=== PATIENT | female | born 1945 | race Caucasian/White ===

== ENCOUNTER 2017-04-02 12:09 | Emergency (ER) | payer MEDICARE, OTHER ==
[~2017-04-02] VITALS: Ht 162.6 cm
[~2017-04-02 12:09] MED LIST: BLEPH-105 ML OP; CHLORDIAZEPOXIDE5 M1 PO; CYM; CYMBALTA20 MG; LORTAB 5/500 TA1 TAB PO; PROVIGIL200 MG
[2017-04-02] MEDS ORDERED: PERPHEN AMITRIP PO (12:22)
[2017-04-02] MEDS ORDERED: LEXAPRO20 M2 PO (12:22)
[2017-04-02] MEDS ORDERED: AMITRIPTYLINE H75 M1 PO (12:22)
[2017-04-02] MEDS ORDERED: FLONASE ALLERG9.9 ML (12:23)
[2017-04-02] MEDS ORDERED: NEURONTIN300 M1 PO (12:23)
[2017-04-02] MEDS ORDERED: ASPIRIN325 M3 PO (12:34)
[2017-04-02] MEDS ORDERED: VITAMIN D31000 UNI3 PO (12:34)
[2017-04-02] MEDS ORDERED: SYMBICORT 160-1 PUFF INH (12:34)
[2017-04-02] MEDS ORDERED: CHLORDIAZEPOXIDE5 M1 PO (12:35)
[2017-04-02] MEDS ORDERED: NORCO 5-325 TA1 EACH PO (13:54)
== END 2017-04-02 14:08 ==
LOC: EDMED 12:09
PROC: 2W39XYZ Immobilization of Left Upper Extremity using Other Device (ICD-10-PCS; principal; 2017-04-02)
DX: S42.035A Nondisplaced fracture of lateral end of left clavicle, initial encounter for closed fracture (principal); Z88.2 Allergy status to sulfonamides; W10.9XXA Fall (on) (from) unspecified stairs and steps, initial encounter; Y92.009 Unspecified place in unspecified non-institutional (private) residence as the place of occurrence of the external cause